=== PATIENT | male | born 1930 | race African-American/Black ===

== ENCOUNTER 2018-06-27 13:59 | Inpatient (IN) | payer MEDICARE, MEDICAID ==
[~2018-06-27] VITALS: Ht 172.7 cm; Wt 63.0 kg
[2018-06-27] MEDS ORDERED: SODIUM CHLORIDE 0.9% 500 ML IV ONE (14:33)
[2018-06-27 15:13] LABS: BASOPHILS % 0.4 % (0.0-2.0); EOSINOPHILS % 4.3 % (0.0-5.0); HEMATOCRIT. 43.3 % (42.0-52.0); HEMOGLOBIN. 14.1 g/dL (14.0-18.0); MEAN CORPUSCULAR HEMOGLOBIN 29.1 pg (28.0-32.0); MEAN CORPUSCULAR VOLUME 89.4 fL (80.0-94.0); MEAN PLATELET VOLUME 8.8 fl (7.4-10.4); MONOCYTES % 8.7 % (2.0-8.0); NEUTROPHILS % 52.6 % (40.0-76.0); PLATELET 153 x1000/uL (130-400); RED BLOOD CELL COUNT 4.85 mill/uL (4.7-6.1); RED CELL DISTRIBUTION WIDTH 14.3 % (11.6-14.6)
[2018-06-27] MEDS ORDERED: LEVETIRACETAM 1000MG/100ML 100 ML IV ONE (15:15)
[2018-06-27 15:19] LABS: CHLORIDE 108 mEq/L (98-107)
[2018-06-27 15:24] LABS: ETHANOL BLOOD < 10 mg/dL
[2018-06-27 15:25] LABS: INR 1.1; PARTIAL THROMBOPLASTIN TIME 25.7 sec (23.4-31.0); PROTHROMBIN TIME 10.7 sec (9.1-11.1)
[2018-06-27 15:26] LABS: LDL CHOLESTEROL 66 mg/dL (5-100)
[2018-06-27 15:27] LABS: CREATINE KINASE 34 IU/L (39-308); CREATINE KINASE MB FRACTION < 1.0 ng/mL (0.5-3.6)
[2018-06-27] MEDS ORDERED: MAGNESIUM/ALUMINUM HYDROXIDE/SIMETHICONE 30ML UDC PO PRN (17:45)
[2018-06-27] MEDS ORDERED: DOCUSATE SODIUM 100MG CAPSULE PO PRN (17:45)
[2018-06-27] MEDS ORDERED: IPRATROPIUM/ALBUTEROL 0.5-3(2.5)MG/3ML NEB INH PRN (17:45)
[2018-06-27] MEDS ORDERED: CLONIDINE 0.1MG TABLET PO PRN (17:45)
[2018-06-27] MEDS ORDERED: ACETAMINOPHEN 325MG TABLET PO PRN (17:45)
[2018-06-27] MEDS ORDERED: DEXTROSE 50% WATER 50ML SYRINGE IV PRN ×2 (18:00)
[2018-06-28] VITALS (7 sets, daily range): BP systolic 130–165; BP diastolic 66–86
[2018-06-28] MEDS: ENOXAPARIN 40MG/0.4ML SYR SUBCUT SCH ×2 (00:50→21:13)
[2018-06-28] MEDS: BLOOD SUGAR DIAGNOSTIC STRIP TEST SCH ×4 (06:41→21:13)
[2018-06-28] MEDS: INSULIN LISPRO 100 UNITS/ML SUBCUT SCH ×4 (06:41→21:00)
[2018-06-28 07:55] LABS: BASOPHILS % 0.4 % (0.0-2.0); EOSINOPHILS % 5.3 % (0.0-5.0); HEMATOCRIT. 40.5 % (42.0-52.0); HEMOGLOBIN. 13.1 g/dL (14.0-18.0); LYMPHOCYTES % 32.5 % (20.0-50.0); MEAN CORPUSCULAR HEMOGLOBIN 28.7 pg (28.0-32.0); MEAN CORPUSCULAR VOLUME 88.5 fL (80.0-94.0); MONOCYTES % 10.8 % (2.0-8.0); PLATELET 144 x1000/uL (130-400); RED BLOOD CELL COUNT 4.57 mill/uL (4.7-6.1); RED CELL DISTRIBUTION WIDTH 14.3 % (11.6-14.6)
[2018-06-28 08:03] LABS: CHLORIDE 111 mEq/L (98-107)
[2018-06-28 08:11] LABS: PHOSPHORUS 2.4 mg/dL (2.5-4.9)
[2018-06-28 08:14] LABS: T4 FREE 1.19 ng/dL (0.76-1.46)
[2018-06-28] MEDS: LOSARTAN POTASSIUM 50 MG TABLET PO SCH (12:35)
[2018-06-28] MEDS: CLONIDINE 0.1MG TABLET PO SCH (16:40)
[2018-06-28] MEDS: LEVETIRACETAM 250MG TABLET PO SCH (21:13)
[2018-06-29] VITALS: BP 126/66
[2018-06-29] MEDS: CLONIDINE 0.1MG TABLET PO SCH ×3 (01:17→16:00)
[2018-06-29 04:00] VITALS: BP_SYST 124; BP_SYST 128; BP_DIAS 73; BP_DIAS 75
[2018-06-29] MEDS: INSULIN LISPRO 100 UNITS/ML SUBCUT SCH ×3 (06:44→17:15)
[2018-06-29] MEDS: BLOOD SUGAR DIAGNOSTIC STRIP TEST SCH ×3 (06:44→16:48)
[2018-06-29 08:00] VITALS: BP 94/46
[2018-06-29 08:10] LABS: BASOPHILS % 0.2 % (0.0-2.0); EOSINOPHILS % 7.3 % (0.0-5.0); HEMATOCRIT. 35.6 % (42.0-52.0); HEMOGLOBIN. 11.7 g/dL (14.0-18.0); LYMPHOCYTES % 31.6 % (20.0-50.0); MEAN CORPUSCULAR HEMOGLOBIN 29.1 pg (28.0-32.0); MEAN CORPUSCULAR VOLUME 88.7 fL (80.0-94.0); MEAN PLATELET VOLUME 8.9 fl (7.4-10.4); MONOCYTES % 11.9 % (2.0-8.0); PLATELET 132 x1000/uL (130-400); RED BLOOD CELL COUNT 4.02 mill/uL (4.7-6.1); RED CELL DISTRIBUTION WIDTH 14.1 % (11.6-14.6)
[2018-06-29] MEDS: LOSARTAN POTASSIUM 50 MG TABLET PO SCH (09:00)
[2018-06-29 09:07] LABS: CHLORIDE 112 mEq/L (98-107)
[2018-06-29] MEDS: LEVETIRACETAM 250MG TABLET PO SCH (09:36)
[2018-06-29 16:00] VITALS: BP 117/60
[2018-06-29 17:41] VITALS: BP 117/60
== END 2018-06-29 18:50 | disposition home or self-care (01) | DRG 74 ==
LOC: ER 13:59 → 5WST 15:28 → EDBEDREQTM 15:30 → EDBEDREQ 15:30 → ENRESERV 22:27
PROVIDERS: ADMIT Family Medicine Adult Medicine; ATTEND Family Medicine Adult Medicine
PROC: 4A00X4Z Measurement of Central Nervous Electrical Activity, External Approach (ICD-10-PCS; principal; 2018-06-29)
DX: G90.8 Other disorders of autonomic nervous system (principal); E44.1 Mild protein-calorie malnutrition; G30.9 Alzheimer's disease, unspecified; I49.3 Ventricular premature depolarization; E78.5 Hyperlipidemia, unspecified; E78.00 Pure hypercholesterolemia, unspecified; E11.65 Type 2 diabetes mellitus with hyperglycemia; E11.43 Type 2 diabetes mellitus with diabetic autonomic (poly)neuropathy; F02.80 Dementia in other diseases classified elsewhere, unspecified severity, without behavioral disturbance, psychotic disturbance, mood disturbance, and anxiety; N40.1 Benign prostatic hyperplasia with lower urinary tract symptoms; H91.90 Unspecified hearing loss, unspecified ear; I11.9 Hypertensive heart disease without heart failure; Z79.4 Long term (current) use of insulin; Z86.73 Personal history of transient ischemic attack (TIA), and cerebral infarction without residual deficits; Z91.81 History of falling; Z68.21 Body mass index [BMI] 21.0-21.9, adult
CPT/HCPCS: 36415; 70551; 71045; 80048; 80320; 82550; 82553; 82962; 83036; 83721; 83735; 83880; 84100; 84439; 84443; 84481; 84484; 93005; 93306; 93880; 96365; 96366; 97162; 97166; 99285; J1650; J1953; J7040; G0480